=== PATIENT | male | born 1990 | race Caucasian/White ===

== ENCOUNTER 2016-06-06 23:01 | Emergency (ER) | payer BC ==
[2016-06-06] MEDS ORDERED: Ondansetron 4 MG Tab.DIS PO ONE (23:30)
[2016-06-06] MEDS ORDERED: Ketorolac 30 MG/ML SDV ONE ×2 (23:31→23:44)
[2016-06-07 00:59] VITALS: BP 155/91
--- NOTE | 2016-06-07 01:22 | EDM.PDOC ---
ED HPI HEAD INJURY - General Chief Complaint: Head Injury Stated Complaint: concussion Time Seen by Provider: 06/06/16 23:10 Source of Information: Reports: Patient, Family History Limitations: Reports: No limitations - History of Present Illness INITIAL COMMENTS - FREE TEXT/NARRATIVE: 36-year-old male presents to the emergency room with complaints of a headache and one episode of vomiting that occurred after he had head trauma while playing basketball. Patient reports at approximately 4:30 this afternoon he was playing a basketball tournament and had a head on the head contact with another player. He denies loss of consciousness or confusion. Went to his girlfriend's after the game and complained of a headache and had one episode of large vomiting. Patient reports he feels a little nauseated and continues with the headache. He denies visual changes, difficulty with speech, denies gait disturbance. Denies numbness or tingling in his extremities or face. He's had a prior concussion in high school playing football. He denies significant history of headaches, decreased concentration. Symptom Onset Date: 06/07/16 Symptom Onset Time: 16:30 Timing/Duration: Reports: Hour(s):, Improving Location: Reports: parietal Quality: Reports: ache Severity: moderate Place of Occurrence: school Improves with: rest Worsens with: none Context: Reports: collision, direct blow, sports injury Associated Symptoms: Reports: headache, nausea/vomiting, dazed. Denies: weakness, loss of consciousness, visual changes, dizziness, confused Treatments [employer]IST: Reports: NSAIDS - Related Data Allergies/ADRs: Allergies Allergy/AdvReac Type Severity Reaction Status Date / Time No Known Drug Allergies Allergy Other Verified 06/06/16 23:42 Home Meds: Home Meds . [No Known Home Meds] 06/06/16 [History] Past Medical History Neurological History: Reports: Concussion ED ROS GENERAL - Review of Systems Review Of Systems: ROS reveals no pertinent complaints other than HPI. ED EXAM, HEAD INJURY - Physical Exam Exam: See Below Exam Limited By: No limitations General Appearance: alert, WD/WN, no apparent distress Head: atraumatic, normocephalic. No: scalp ecchymosis, scalp hematoma, scalp tenderness Nexus Criteria: No: posterior, midline cervical tenderness, evidence of intoxication, altered level of consciousness, focal neurological deficit, painful distracting injuries Eyes: bilateral eye: EOMI, PERRL Ears: normal external exam, normal canal, hearing grossly normal, normal TMs Nose: normal inspection, normal mucousa, no blood Throat/Mouth: Normal inspection, Normal lips, Normal teeth, Normal gums, Normal oropharynx, Normal voice, No airway compromise Neck: non-tender, full range of motion, normal alignment, normal inspection Respiratory: no respiratory distress, lungs clear, normal breath sounds, no accessory muscle use, chest non-tender Cardiovascular: normal peripheral pulses, regular rate, rhythm, no murmur Back Exam: normal inspection Extremities: no evidence of injury, normal range of motion, no pedal edema Neurologic: shake loader II-XII nml as tested, no motor/sensory deficits, alert, normal mood/affect, oriented x 3 Skin: Normal color, Warm/dry - [place] Coma Score Best Eye Response ([place]): (4) open spontaneously Best Verbal Response ([place]): (5) oriented Best Motor Response ([place]): (6) obeys commands [place] Total: 15 Course - Vital Signs Last Recorded V/S: Last Vital Signs Temp 98.0 F 06/07/16 00:58 Pulse 96 06/07/16 00:58 Resp 20 06/07/16 00:58 BP 155/91 H 06/07/16 00:58 Pulse Ox 97 06/07/16 00:58 - Orders/Labs/Meds Meds: Medications Discontinued Medications Generic Name Dose Route Start Last Admin Trade Name Joyce PRN Reason Stop Dose Admin Ketorolac Tromethamine 30 mg 06/06/16 23:31 Toradol .ROUTE 06/06/16 23:32 .STK-MED ONE Ketorolac Tromethamine Confirm 06/06/16 23:44 06/06/16 23:52 Toradol Administered 06/06/16 23:45 30 mg Dose Administration 30 mg .ROUTE .STK-MED ONE Ondansetron HCl 4 mg 06/06/16 23:30 06/06/16 23:40 Zofran Odt PO 06/06/16 23:31 4 mg ONETIME ONE Administration - Re-Assessments/Exams Free Text/Narrative Re-Assessment/Exam: 06/07/16 01:30 Patient reports headache improved with IM Toradol 30 mg and nausea resolved with Zofran 4 mg ODT Departure - Departure Time of Disposition: 00:35 Disposition: Home, Self-Care 01 Condition: good Clinical Impression: Concussion injury of brain Instructions: Head Injury, Adult, Post-Concussion Syndrome Forms: ED Department Discharge Additional Instructions: 1. Rest 2. 24 observation with adult. Any neurologic changes, changes in speech, continued vomiting, or worsening of headache patient should return to the emergency room for further evaluation. 3. Patient should check for any neurological changes every 2 hours this evening to morning. 4. Tylenol Extra Strength every 4 hours for headaches. 5. No spell related activities until followup with primary care. - Assessment/Plan Assessment:: Concussion injury Plan: 1. Rest 2. 24 observation for any neurologic changes was discussed with the family and in started on her discharge sheet. Any changes patient is to return to the emergency room.. 3. Tylenol and/or alternating with ibuprofen for any headaches. 4. Recommend followup with primary care prior to returning to any athletic activities.
== END 2016-06-07 00:35 | disposition home or self-care (01) ==
LOC: KA.ED 23:01
DX: S06.0X0A Concussion without loss of consciousness, initial encounter (principal); Y93.67 Activity, basketball; Y93.89 Activity, other specified; Y92.219 Unspecified school as the place of occurrence of the external cause
CPT/HCPCS: 96372; 99283; A9270; J1885